=== PATIENT | male | born 1995 | race Caucasian/White ===

== ENCOUNTER 2022-01-27 15:56 | Emergency (ER) | payer BC ==
[2022-01-27 18:38] LABS: HEMOGLOBIN 17.2 gm/dl (14.0-17.5); RED BLOOD COUNT 5.48 M/UL (4.20-5.50); WHITE BLOOD COUNT 8.1 K/UL (4.5-11.0)
[2022-01-27] MEDS ORDERED: AUGMENTIN XR 11 EACH PO (19:26)
[2022-01-27 20:58] LABS: BUN/CREATININE RATIO 13 (0-10)
== END 2022-01-27 19:48 | disposition home or self-care (01) ==
LOC: ER1 15:56
PROVIDERS: Emergency Medicine
DX: T63.001A Toxic effect of unspecified snake venom, accidental (unintentional), initial encounter (principal); Z23 Encounter for immunization
CPT/HCPCS: 80053; 85025; 85610; 85730; 90471; 90715; 99283